=== PATIENT | male | born 1965 | race Caucasian/White ===

== ENCOUNTER 2016-05-19 05:46 | Day surgery (SDC) | payer BC ==
[2016-05-17 10:40] LABS: HEMATOCRIT 44.5 % (40.0-51.0); HEMOGLOBIN 15.7 g/dL (13.6-17.8)
[2016-05-17 10:52] LABS: BUN (BLOOD UREA NITROGEN) 6 MG/DL (6-23); CHLORIDE, SERUM 103 MMOL/L (96-112); CO2 (CARBON DIOXIDE) 27 MMOL/L (24-34); CREATININE 0.86 MG/DL (0.70-1.30); GFR AFRICAN AMERICAN 115 ML/MIN (>=60); GFR NON AFRICAN AMERICAN 99 ML/MIN (>=60); GLUCOSE, SERUM 132 MG/DL (60-99); POTASSIUM, SERUM 4.4 MMOL/L (3.5-5.3); SODIUM, SERUM 140 MMOL/L (135-148)
--- NOTE | ~2016-05-19 | OP ---
Record Of Operation [facility] [address] [place]. [address] NAME: PRISCA IVEY : 61 STATUS : [facility]#: [id number] AGE: 51 ADM/REG DATE : 05/19/16 MR#: [id number] REPORT SERV DATE: 05/23/16 DICTATED BY: PHILIP HICKMAN DATE: 05/19/16 REPORT STATUS : Draft TRANSCRIBED BY: MODL DATE: 05/19/16 DATE OF PROCEDURE: 05/19/2016 OPERATIVE SURGEON: Philip Hickman M.D. OPERATIVE TICKET PRINTER AND TAGGER: CHRISTIAN Georges COMPLICATIONS: None. ESTIMATED BLOOD LOSS: Minimal. DISPOSITION: Stable to recovery room. ANESTHESIA: General with interscalene block augmentation for postoperative pain control. PREOPERATIVE DIAGNOSES: 1. Right shoulder pain. 2. Rotator cuff tear. 3. Degenerative labrum. 4. Subacromial impingement. 5. Acromioclavicular joint osteoarthritis with impingement. POSTOPERATIVE DIAGNOSES: 1. Right shoulder pain. 2. Low-grade partial-thickness subscapularis and supraspinatus rotator cuff tears. 3. 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 4. Degenerative labral tear. 5. Subacromial impingement. 6. Acromioclavicular joint osteoarthritis with impingement. OPERATIVE PROCEDURE: 1. Right shoulder examination under anesthesia. 2. Right shoulder arthroscopy. 3. Extensive debridement of low-grade partial-thickness articular-sided supraspinatus and subscapularis rotator cuff tears (less than 30%). 4. Limited debridement of degenerative labral tear. 5. Shaving chondroplasty of the glenohumeral joint. 6. Subacromial decompression. 7. Distal clavicular resection. OPERATIVE NOTE: The diagnoses listed above as well as recommended surgical procedure, risks, benefits, thereof discussed in full detail with Prsica Ivey and family on the morning of 05/19/2016. The diagnoses listed above as well as recommended surgical procedure, risks, benefits, thereof were discussed in full detail. The patient asked appropriate questions, which were answered to his satisfaction. Informed consent was signed, witnessed, and placed in the chart. The right upper extremity was marked for confirmation and an interscalene Record Of Operation [place] [address] [facility] [place]. [address] NAME: PRISCA IVEY : 61 STATUS : [facility] PAT#: [id number] AGE: 51 ADM/REG DATE : 05/19/16 MR#: [id number] REPORT SERV DATE: 05/23/16 DICTATED BY: PHILIP HICKMAN DATE: 05/19/16 REPORT STATUS : Draft TRANSCRIBED BY: MODL DATE: 05/19/16 block was placed by the Anesthesia Team with good success. The patient was then wheeled to the operative arena where general anesthesia was administered. The patient was placed in lateral decubitus position with all nonoperative extremities well padded and secured for the duration of the case. The right upper extremity was examined under anesthesia and then placed in 5 pounds of longitudinal traction and prepped and draped in typical orthopedic sterile fashion. A surgical pause was performed, confirming the correct patient as well as proper surgical site and procedure. All present were in agreement. The patient received appropriate antibiotics for perioperative antibiosis. All standard anatomic landmarks as well as arthroscopic portal sites were demarcated using a sterile marking pen. 15 mL of 0.5% Marcaine with epinephrine was injected in a standard posterior, lateral, and anterior portal sites. An #11 blade was used to establish the posterior portal through which an arthroscopic cannula and blunt obturator were inserted atraumatically into the glenohumeral joint. A full diagnostic arthroscopy was performed. There was evidence for degenerative chondromalacia of the glenohumeral joint with grade 3-4 chondral changes and a large chondral flap off the mid posterior aspect of the humeral head. There was also evidence for near circumferential degenerative labral tearing. The biceps itself showed mild tenosynovitis, but was otherwise attached and in good condition as it traversed in the bicipital groove. The subscapularis showed evidence for low-grade partial- thickness articular side tearing. The supraspinatus as well showed evidence for low-grade partial-thickness articular side tearing at the junction of the supraspinatus and infraspinatus tendons at the greater tuberosity. Using an inside-out approach, an anterior portal was established and dammed cannula was placed. An arthroscopic shaver was used to perform an extensive debridement of the low-grade partial-thickness articular-sided supraspinatus and subscapularis rotator cuff tears. These amounted to less than 30% of the rotator cuff tendon thickness. There were no full-thickness tears noted. A shaver was then used to perform a limited debridement of degenerative labral tearing. All damaged labrum was debrided trimming the labrum back down to smooth rim flushed with the articular surface of the glenoid. The shaver was then used to perform a shaving chondroplasty of the glenoid and the humeral head. There were several areas of grade 3-4 chondromalacia with full subchondral bone exposure. The large chondral flap over the posterior aspect of the humeral head was resected and trimmed as a stable margin. The arthroscope was then withdrawn from the glenohumeral joint and inserted into the subacromial space. Using an outside-in spinal needle technique, a lateral portal was established and dammed cannula was placed. There was evidence for mechanical bursal sided wear on the surface of the rotator cuff tendon, but no significant tears. A shaver was used to perform a full subacromial bursectomy. All soft tissue was removed from the undersurface of the acromion demonstrating evidence for downward reflection of the anterolateral border of the acromion with obvious mechanical impingement. There was also hypertrophic arthritic change of the acromioclavicular joint. An arthroscopic jd was used to perform a subacromial decompression without difficulty. This opened up the subacromial space nicely. A distal clavicular resection of the distal most 8 mm clavicle and the proximal most 2 mm of acromion was conducted. This opened up the AC joint nicely as well. At this juncture, all arthroscopic instruments, excess fluid, and debris were removed from the subacromial space. The portals were closed with 3-0 Monocryl in the subcuticular layers Record Of Operation [place] [address] [facility] [place]. [address] NAME: PRISCA IVEY : 61 STATUS : [facility]#: [id number] AGE: 51 ADM/REG DATE : 05/19/16 MR#: [id number] REPORT SERV DATE: 05/23/16 DICTATED BY: PHILIP HICKMAN DATE: 05/19/16 REPORT STATUS : Draft TRANSCRIBED BY: MARQUITAL DATE: 05/19/16 and Steri-Strips on the skin. Sterile dressing was secured with Medipore tape. The patient was placed in a standard sling for temporary immobilization. He was then awakened from anesthesia without difficulty and transferred to the postanesthesia care unit in stable condition, where his postoperative exam was within normal limits understanding that his interscalene block was still in effect. A lengthy discussion was held with the patient's family detailing all operative findings as well as procedures performed with all questions answered to their satisfaction. CCS/MODL Philip Hickman M.D. / [id number] CC: Sophia Mchugh M.D.
[~2016-05-19 05:46] MED LIST: ALBUTEROL0.63 MG/3 INH; FLONASE NAS; GLUCPH PO; LINZESS 290 M290 MCG PO; LIPITOR20 PO; MAGOX4 PO; NEUR600 PO; PRIN10 PO; RELA5 PO; SEV VITAMINS PO; SINGULAIR1 PO; SPIRIVA RESPIMAT INH; SYMBICORT 160/41 INH INH
[2016-12-06] MEDS ORDERED: GLUCPH PO (15:00)
== END 2016-05-19 14:24 | disposition home or self-care (01) ==
LOC: SDC 05:46
PROVIDERS: Specialist
PROC: 0RBJ4ZZ Excision of Right Shoulder Joint, Percutaneous Endoscopic Approach (ICD-10-PCS; 2016-05-19)
PROC: 0PB94ZZ Excision of Right Clavicle, Percutaneous Endoscopic Approach (ICD-10-PCS; 2016-05-19)
PROC: 0LQ14ZZ Repair Right Shoulder Tendon, Percutaneous Endoscopic Approach (ICD-10-PCS; principal; 2016-05-19 08:00)
PROC: 0RNJ4ZZ Release Right Shoulder Joint, Percutaneous Endoscopic Approach (ICD-10-PCS; 2016-05-19 08:00)
DX: M75.111 Incomplete rotator cuff tear or rupture of right shoulder, not specified as traumatic (principal); M19.011 Primary osteoarthritis, right shoulder; M25.811 Other specified joint disorders, right shoulder; S43.401A Unspecified sprain of right shoulder joint, initial encounter; E78.00 Pure hypercholesterolemia, unspecified; I10 Essential (primary) hypertension; G47.33 Obstructive sleep apnea (adult) (pediatric); M19.90 Unspecified osteoarthritis, unspecified site; E11.9 Type 2 diabetes mellitus without complications; K58.9 Irritable bowel syndrome, unspecified; J44.9 Chronic obstructive pulmonary disease, unspecified; F17.210 Nicotine dependence, cigarettes, uncomplicated; Z98.890 Other specified postprocedural states; Z79.51 Long term (current) use of inhaled steroids; Z79.84 Long term (current) use of oral hypoglycemic drugs; Z79.899 Other long term (current) drug therapy
CPT/HCPCS: 80048; 82962; 85014; 85018; 93005; J0330; J0690; J2250; J2405; J2710; J2795; J3010

== ENCOUNTER 2016-12-07 05:39 | Day surgery (SDC) | payer BC ==
[~2016-12-07] VITALS: Ht 180.3 cm; Wt 129.3 kg
--- NOTE | ~2016-12-07 | EGD ---
EGD REPORT [facility] [address] [address] NAME: PRISCA IVEY : 61 STATUS : [facility]#: [id number] AGE: 51 ADM/REG DATE : 12/07/16 MR#: [id number] REPORT SERV DATE: 12/07/16 DICTATED BY: DATE: REPORT STATUS : Draft TRANSCRIBED BY: [email or web address] DATE: 12/07/16 [facility] Patient Name: Prisca Ivey Date of : 1965 Attending MD: KURT GUERRERO MD Procedure Date No Time: 12/07/2016 Procedure: Colonoscopy Indications: High risk colon cancer surveillance: Personal history of colonic polyps, High risk colon cancer surveillance: Personal history adenoma >= 10 mm in size, High risk colon CA surveillance: Personal history multiple (3 or more) adenomas Referring MD: LATRICE LYNNE Medicines: Monitored Anesthesia Care Complications: No immediate complications. Procedure: Pre-Anesthesia Assessment: - ASA Grade Assessment: III - A patient with severe systemic disease. After I obtained informed consent, the scope was passed under direct vision. Throughout the procedure, the patient's blood pressure, pulse, and oxygen saturations were monitored continuously. The PCF [id number] was introduced through the anus and advanced to the cecum, identified by appendiceal orifice and ileocecal valve. The colonoscopy was performed without difficulty. The patient tolerated the procedure well. The quality of the bowel preparation was good. Findings: The perianal and digital rectal examinations were normal. Multiple small and large-mouthed diverticula were found in the sigmoid colon. Three sessile polyps were found in the transverse colon. The polyps were 5 to 10 mm in size. These polyps were removed with a hot snare. Resection and retrieval were complete. Three sessile polyps were found in the sigmoid colon. The polyps were small in size. These polyps were removed with a cold snare. Resection and retrieval were complete. A tattoo was seen in the rectum. The tattoo site appeared normal. A sessile polyp was found in the rectum. The polyp was diminutive in size. The polyp was removed with a cold biopsy forceps. Resection and retrieval were complete. No other significant abnormalities were identified in a careful examination of the remainder of the colon. There is no endoscopic evidence of inflammation, mass, ulcerations or EGD REPORT [address] [place]. [address] NAME: PRISCA IVEY : 61 STATUS : REG [facility]#: [id number] AGE: 51 ADM/REG DATE : 12/07/16 MR#: [id number] REPORT SERV DATE: 12/07/16 DICTATED BY: DATE: REPORT STATUS : Draft TRANSCRIBED BY: [employer] DATE: 12/07/16 angioectasia in the entire colon. Internal hemorrhoids were found during retroflexion and were Grade I (internal hemorrhoids that do not prolapse). No additional abnormalities were found on retroflexion. Impression: - Diverticulosis in the sigmoid colon. - Three 5 to 10 mm polyps in the transverse colon. Resected and retrieved. - Three small polyps in the sigmoid colon. Resected and retrieved. - A tattoo was seen in the rectum. The tattoo site appeared normal. - One diminutive polyp in the rectum. Resected and retrieved. - Internal hemorrhoids. Recommendation: - Patient has a contact number available for emergencies. The signs and symptoms of potential delayed complications were discussed with the patient. Return to normal activities tomorrow. Written discharge instructions were provided to the patient. - High fiber diet. - Discharge patient to home. - Continue present medications. - Await pathology results. - Repeat colonoscopy in 2 years for surveillance based on pathology results. Procedure Code(s): --- Professional --- 86293, Colonoscopy, flexible, proximal to splenic flexure; with removal of tumor(s), polyp(s), or other lesion(s) by snare technique 46537, 59, Colonoscopy, flexible, proximal to splenic flexure; with biopsy, single or multiple Diagnosis Code(s): --- Professional --- K64.0, First degree hemorrhoids K57.30, Diverticulosis of large intestine without perforation or abscess without bleeding K62.1, Rectal polyp D12.5, Benign neoplasm of sigmoid colon D12.3, Benign neoplasm of transverse colon Z86.010, Personal history of colonic polyps CPT copyright 2013 [employer]. All rights reserved. EGD REPORT [facility] [address] [address] NAME: PRISCA IVEY : 61 STATUS : REG [facility]#: [id number] AGE: 51 ADM/REG DATE : 12/07/16 MR#: [id number] REPORT SERV DATE: 12/07/16 DICTATED BY: DATE: REPORT STATUS : Draft TRANSCRIBED BY: [employer] DATE: 12/07/16 The codes documented in this report are preliminary and upon director of property management review may be revised to meet current compliance requirements. KURT GUERRERO MD 12/07/2016 8:17 AM This report has been signed electronically. Number of Addenda: 0 Note Initiated On: 12/07/2016 6:55 AM Scope Withdrawal Time 0 hours 19 minutes 11 seconds [address] [id number]
== END 2016-12-07 23:59 | disposition home health service (06) ==
LOC: DMU 05:39
PROVIDERS: Internal Medicine Gastroenterology
PROC: 0DBL8ZZ Excision of Transverse Colon, Via Natural or Artificial Opening Endoscopic (ICD-10-PCS; 2016-12-07)
PROC: 0DBP8ZX Excision of Rectum, Via Natural or Artificial Opening Endoscopic, Diagnostic (ICD-10-PCS; 2016-12-07)
PROC: 0DBN8ZZ Excision of Sigmoid Colon, Via Natural or Artificial Opening Endoscopic (ICD-10-PCS; principal; 2016-12-07 07:00)
DX: Z12.11 Encounter for screening for malignant neoplasm of colon (principal); D12.3 Benign neoplasm of transverse colon; D12.5 Benign neoplasm of sigmoid colon; K62.1 Rectal polyp; K57.30 Diverticulosis of large intestine without perforation or abscess without bleeding; K64.0 First degree hemorrhoids; I10 Essential (primary) hypertension; E78.5 Hyperlipidemia, unspecified; M19.90 Unspecified osteoarthritis, unspecified site; F17.210 Nicotine dependence, cigarettes, uncomplicated; E11.9 Type 2 diabetes mellitus without complications; G47.33 Obstructive sleep apnea (adult) (pediatric); Z99.89 Dependence on other enabling machines and devices; Z86.010 Personal history of colon polyps; Z79.899 Other long term (current) drug therapy; Z98.890 Other specified postprocedural states
CPT/HCPCS: 82962; 88305